=== PATIENT | female | born 1985 | race Caucasian/White ===

== ENCOUNTER 2019-12-03 14:26 | Emergency (ER) | payer MEDICARE, OTHER ==
[2019-12-03 14:44] VITALS: TEMP 98
[2019-12-03] MEDS ORDERED: SODIUM CHLORIDE 0.9% 1,000 ML IV STA (15:00)
[2019-12-03] MEDS ORDERED: KETOROLAC 30 MG/ML 1 ML VIAL IVP STA (15:00)
--- NOTE | 2019-12-03 15:03 | ED ---
General Adult HPI - General Chief complaint: Abdominal Pain Stated complaint: Abd pain, sent by Time Seen by Provider: 12/03/19 14:51 Source: family, RN notes reviewed Mode of arrival: ambulatory Limitations: no limitations - History of Present Illness Initial comments: 34-year-old female with a past medical history of cerebral palsy, iron deficiency anemia presents to the emergency room for a chief complaint of abdominal pain. Patient started to have abdominal pain earlier today. States it is generalized in nature. It caregiver reports she took her to the doctor today and they did an x-ray and saw air in her abdomen and did not hear bowel s ounds were concerned for constipation versus blockage. Patient had 2 very large bowel movements yesterday. Patient does not have any nausea vomiting. Patient is eating normally. No fevers.Patient has no other complaints at this time including shortness of breath, chest pain, nausea or vomiting, headache, or visual changes. - Related Data Home Medications Medication Instructions Recorded Confirmed Lutera 1 tab PO DIRECTED 01/30/15 05/19/15 One A Day 1 tab PO DAILY 01/30/15 05/19/15 polyethylene glycoL 3350 [Miralax] 17 gm PO DAILY PRN 01/30/15 05/19/15 tiZANidine [Zanaflex] 2 mg PO HS 01/30/15 05/19/15 Previous Rx's Medication Instructions Recorded Dicyclomine [Bentyl] 20 mg PO TID PRN #14 tablet 12/03/19 Allergies Allergy/AdvReac Type Severity Reaction Status Date / Time cefaclor [From Ceclor] Allergy Unknown Verified 12/03/19 14:43 morphine Allergy Unknown Verified 12/03/19 14:43 Review of Systems ROS Statement: Those systems with pertinent positive or pertinent negative responses have been documented in the HPI. ROS Other: All systems not noted in ROS Statement are negative. Past Medical History Past Medical History: No Reported History Additional Past Medical History / Comment(s): Cerebral palsy,iron deficiency anemia History of Any Multi-Drug Resistant Organisms: None Reported Past Surgical History: Back Surgery, Orthopedic Surgery Past Psychological History: Anxiety Smoking Status: Never smoker Past Alcohol Use History: None Reported Past Drug Use History: None Reported General Exam Limitations: no limitations General appearance: alert, in no apparent distress Head exam: Present: atraumatic, normocephalic, normal inspection Eye exam: Present: normal appearance, PERRL, EOMI. Absent: scleral icterus, conjunctival injection, periorbital swelling ENT exam: Present: normal exam, mucous membranes moist Neck exam: Present: normal inspection, full ROM. Absent: tenderness, meningismus, lymphadenopathy Respiratory exam: Present: normal lung sounds bilaterally. Absent: respiratory distress, wheezes, rales, rhonchi, stridor Cardiovascular Exam: Present: regular rate, normal rhythm, normal heart sounds. Absent: systolic murmur, diastolic murmur, rubs, gallop, clicks GI/Abdominal exam: Present: soft, tenderness (minimal generalized abdominal tenderness), normal bowel sounds (bowel sounds are normal.). Absent: distended, guarding, rebound, rigid Neurological exam: Present: alert Course Vital Signs 12/03/19 12/03/19 14:39 16:41 Temperature 98.0 F Pulse Rate 96 87 Respiratory 18 16 Rate Blood Pressure 116/84 110/89 O2 Sat by Pulse 97 99 Oximetry Medical Decision Making - Medical Decision Making Vitals are stable. Abdomen is soft. No specific tenderness. Bowel sounds are normal. CBC CMP are unremarkable. Urinalysis does show 2+ ketones and patient was given fluids. X-ray KUB was performed that showed a suboptimal study however persistent overall nonspecific bowel gas pattern. Suspected moderate colonic fecal stasis. This was compared to a previous x-ray 2014 where patient then had a CT obtained which showed fecal impaction and constipation. I did perform rectal exam and there is no fecal impaction at this time. Patient likely experiencing bowel spasms and constipation. Patient takes half a cap of MiraLAX daily which will be increased to a full. She will be given Bentyl and Tylenol. She is to follow-up with her doctor in one to 2 days. If patient has any worsening symptoms such as fevers or symptoms are not improving caregiver will return to the emergency room. X-ray in case was reviewed with Dr. Santiago - Lab Data Result diagrams: 12/03/19 14:58 12/03/19 14:58 Lab Results 12/03/19 12/03/19 12/03/19 Range/Units 14:58 14:58 15:10 WBC 6.0 (3.8-10.6) k/uL RBC 4.69 (3.80-5.40) m/uL Hgb 14.4 (11.4-16.0) gm/dL Hct 44.6 (34.0-46.0) % MCV 95.0 (80.0-100.0) fL MCH 30.6 (25.0-35.0) pg MCHC 32.2 (31.0-37.0) g/dL RDW 12.4 (11.5-15.5) % Plt Count 347 (150-450) k/uL Neutrophils % 58 % Lymphocytes % 33 % Monocytes % 6 % Eosinophils % 1 % Basophils % 1 % Neutrophils # 3.5 (1.3-7.7) k/uL Lymphocytes # 1.9 (1.0-4.8) k/uL Monocytes # 0.3 (0-1.0) k/uL Eosinophils # 0.0 (0-0.7) k/uL Basophils # 0.1 (0-0.2) k/uL Sodium 142 (137-145) mmol/L Potassium 4.6 (3.5-5.1) mmol/L Chloride 107 (98-107) mmol/L Carbon Dioxide 22 (22-30) mmol/L Anion Gap 13 mmol/L BUN 12 (7-17) mg/dL Creatinine 0.56 (0.52-1.04) mg/dL Est GFR (CKD-EPI)AfAm >90 (>60 ml/min/1.73 sqM) Est GFR (CKD-EPI)NonAf >90 (>60 ml/min/1.73 sqM) Glucose 84 (74-99) mg/dL Calcium 10.1 (8.4-10.2) mg/dL Total Bilirubin 0.8 (0.2-1.3) mg/dL AST 20 (14-36) U/L ALT 12 (4-34) U/L Alkaline Phosphatase 84 (38-126) U/L Total Protein 8.3 H (6.3-8.2) g/dL Albumin 5.1 H (3.5-5.0) g/dL Amylase 78 (30-110) U/L Lipase 97 (23-300) U/L Urine Color Yellow Urine Appearance Cloudy H (Clear) Urine pH 5.5 (5.0-8.0) Ur Specific [place] 1.022 (1.001-1.035) Urine Protein Negative (Negative) Urine Glucose (UA) Negative (Negative) Urine Ketones 2+ H (Negative) Urine Blood Moderate H (Negative) Urine Nitrite Negative (Negative) Urine Bilirubin Negative (Negative) Urine Urobilinogen <2.0 (<2.0) mg/dL Ur Leukocyte Esterase Trace H (Negative) Urine RBC 2 (0-5) /hpf Urine WBC 8 H (0-5) /hpf Ur Squamous Epith Cells 12 H (0-4) /hpf Urine Bacteria Occasional H (None) /hpf Urine Mucus Few H (None) /hpf Urine HCG, Qual (Not Detectd) 12/03/19 Range/Units 15:10 WBC (3.8-10.6) k/uL RBC (3.80-5.40) m/uL Hgb (11.4-16.0) gm/dL Hct (34.0-46.0) % MCV (80.0-100.0) fL MCH (25.0-35.0) pg MCHC (31.0-37.0) g/dL RDW (11.5-15.5) % Plt Count (150-450) k/uL Neutrophils % % Lymphocytes % % Monocytes % % Eosinophils % % Basophils % % Neutrophils # (1.3-7.7) k/uL Lymphocytes # (1.0-4.8) k/uL Monocytes # (0-1.0) k/uL Eosinophils # (0-0.7) k/uL Basophils # (0-0.2) k/uL Sodium (137-145) mmol/L Potassium (3.5-5.1) mmol/L Chloride (98-107) mmol/L Carbon Dioxide (22-30) mmol/L Anion Gap mmol/L BUN (7-17) mg/dL Creatinine (0.52-1.04) mg/dL Est GFR (CKD-EPI)AfAm (>60 ml/min/1.73 sqM) Est GFR (CKD-EPI)NonAf (>60 ml/min/1.73 sqM) Glucose (74-99) mg/dL Calcium (8.4-10.2) mg/dL Total Bilirubin (0.2-1.3) mg/dL AST (14-36) U/L ALT (4-34) U/L Alkaline Phosphatase (38-126) U/L Total Protein (6.3-8.2) g/dL Albumin (3.5-5.0) g/dL Amylase (30-110) U/L Lipase (23-300) U/L Urine Color Urine Appearance (Clear) Urine pH (5.0-8.0) Ur Specific [place] (1.001-1.035) Urine Protein (Negative) Urine Glucose (UA) (Negative) Urine Ketones (Negative) Urine Blood (Negative) Urine Nitrite (Negative) Urine Bilirubin (Negative) Urine Urobilinogen (<2.0) mg/dL Ur Leukocyte Esterase (Negative) Urine RBC (0-5) /hpf Urine WBC (0-5) /hpf Ur Squamous Epith Cells (0-4) /hpf Urine Bacteria (None) /hpf Urine Mucus (None) /hpf Urine HCG, Qual Not Detected (Not Detectd) Disposition Clinical Impression: Constipation, Abdominal pain Disposition: HOME SELF-CARE Condition: Good Instructions (If sedation given, give patient instructions): Constipation (ED), Abdominal Pain (ED) Additional Instructions: please push plenty of fluids. Give Tylenol every 4-6 hours for pain. Give Bentyl as needed for pain. Try a full Of MiraLAX daily. Follow-up with your doctor. Return here to the emergency room if patient has any worsening symptoms such as fevers or symptoms are not improving. Prescriptions: Dicyclomine [Bentyl] 20 mg PO TID PRN #14 tablet PRN Reason: abdominal pain Is patient prescribed a controlled substance at d/c from ED?: No Referrals: Marques Talavera MD [Primary Care Provider] - 1-2 days Time of Disposition: 16:41
[2019-12-03 15:18] LABS: Basophils # (A) 0.1 k/uL (0-0.2); Basophils % (A) 1 %; Eosinophils % (A) 1 %; HCT 44.6 % (34.0-46.0); HGB 14.4 gm/dL (11.4-16.0); Lymphocytes # (A) 1.9 k/uL (1.0-4.8); Lymphocytes % (A) 33 %; MCH 30.6 pg (25.0-35.0); MCHC 32.2 g/dL (31.0-37.0); Mean Platelet Volume 7.2; Monocytes # (A) 0.3 k/uL (0-1.0); Monocytes % (A) 6 %; Neutrophils # (A) 3.5 k/uL (1.3-7.7); Neutrophils % (A) 58 %; Platelet Count 347 k/uL (150-450); RBC 4.69 m/uL (3.80-5.40); RDW 12.4 % (11.5-15.5)
[2019-12-03 15:31] LABS: ALT 12 U/L (4-34); AST 20 U/L (14-36); African American GFR (CKD) >90 (>60 ml/min/1.73 sqM); Albumin 5.1 g/dL (3.5-5.0); Alkaline Phosphatase 84 U/L (38-126); Amylase 78 U/L (30-110); Anion Gap 13 mmol/L; Blood Urea Nitrogen 12 mg/dL (7-17); Calcium 10.1 mg/dL (8.4-10.2); Carbon Dioxide 22 mmol/L (22-30); Chloride 107 mmol/L (98-107); Glucose 84 mg/dL (74-99); Non-African American GFR(CKD) >90 (>60 ml/min/1.73 sqM); Potassium 4.6 mmol/L (3.5-5.1); Sodium 142 mmol/L (137-145); Total Bilirubin 0.8 mg/dL (0.2-1.3); Total Protein 8.3 g/dL (6.3-8.2)
[2019-12-03 15:32] LABS: Appearance,Urine Cloudy (Clear); Bacteria,Urine Occasional /hpf; Bilirubin,Urine Negative (Negative); Blood,Urine Moderate (Negative); Color,Urine Yellow; Glucose,Urine (UA) Negative (Negative); Ketones,Urine 2+ (Negative); Leukocyte Esterase,Urine Trace (Negative); Mucus,Urine Few /hpf; Nitrite,Urine Negative (Negative); PH, Urine 5.5 (5.0-8.0); Protein,Urine Negative (Negative); RBC,Urine 2 /hpf (0-5); Specific Gravity,Urine 1.022 (1.001-1.035); Squamous Epithelial Cell,Urine 12 /hpf (0-4); Urobilinogen,Urine <2.0 mg/dL (<2.0); WBC,Urine 8 /hpf (0-5)
--- NOTE | 2019-12-03 16:01 | XR ---
EXAMINATION TYPE: XR KUB DATE OF EXAM: 12/03/2019 3:56 PM CLINICAL HISTORY: Abdominal pain for 2 days. TECHNIQUE: Two supine KUB images of the abdomen are obtained. COMPARISON: Abdominal x-ray and CT January 30, 2015. FINDINGS: Persistent marked underlying levoconvex rotary scoliosis with long segment Quinteros teresa s urgical correction. This makes evaluation suboptimal. Gas prominent small and large bowel loops throu ghout the abdomen and pelvis. Some prominence of fecal material in the right abdomen and pelvis. [place] Farmer raquel deformity to the pelvis with prior attempted surgery left acetabular level. Stable right hip subl uxation. Lung bases remain clear. IMPRESSION: Suboptimal study, persistent overall nonspecific bowel gas pattern. Persistent suspected moderate colonic fecal stasis.
[2019-12-03 16:42] VITALS: BP 110/89; PULSE 87; RESP 16
== END 2019-12-03 16:51 | disposition home or self-care (01) ==
LOC: EC 14:26
DX: K59.00 Constipation, unspecified (principal); F41.9 Anxiety disorder, unspecified; G80.9 Cerebral palsy, unspecified; Z79.899 Other long term (current) drug therapy; Z88.1 Allergy status to other antibiotic agents; Z88.5 Allergy status to narcotic agent
CPT/HCPCS: 36415; 80053; 82150; 83690; 85025; 81001; 81025; 74018; 99284; 96374; 96361 ×2; J1885

== ENCOUNTER 2019-12-05 18:51 | Emergency (ER) | payer MEDICARE, OTHER ==
[2019-12-05] MEDS ORDERED: SODIUM CHLORIDE 0.9% 1,000 ML IV STA (18:54)
[2019-12-05] MEDS ORDERED: KETOROLAC 30 MG/ML 1 ML VIAL IVP STA (18:54)
[2019-12-05] MEDS ORDERED: DICYCLOMINE 10 MG/ML 2 ML AMP IM STA (18:54)
[2019-12-05] MEDS ORDERED: PANTOPRAZOLE 40 MG/10 ML VIAL IVP STA (18:55)
[2019-12-05] MEDS ORDERED: ONDANSETRON 4 MG/2 ML VIAL IVP STA (18:55)
--- NOTE | 2019-12-05 19:05 | ED ---
Nausea/Vomiting/Diarrhea HPI - General Stated complaint: Vomiting Time Seen by Provider: 12/05/19 18:54 Source: RN notes reviewed, old records reviewed - History of Present Illness Initial comments: This is a 34-year-old female DF for evaluation of nausea vomiting persistent nausea vomiting patient symptoms similar symptoms throughout the day today. Patient has prior evaluations lately with no acute cause found. Persistent n ausea vomiting currently with no abdominal pain no fevers. No sick contacts no travel history no family members with similar complaint MD complaint: nausea, vomiting, abdominal pain -: days(s) Description of Vomiting: food contents Associated Abdominal Pain: Yes Radiation: none Severity: moderate Severity scale (1-10): 4 Quality: cramping Consistency: constant Improves with: none Worsens with: none Associated Symptoms: loss of appetite, nausea/vomiting - Related Data Home Medications Medication Instructions Recorded Confirmed polyethylene glycoL 3350 [Miralax] 17 gm PO DAILY PRN 01/30/15 12/03/19 Baclofen [Lioresal] 10 mg PO BID 12/03/19 12/03/19 Calcium (Unknown Strength) 1 tab PO DAILY 12/03/19 12/03/19 L.acidoph,Paracasei, B.lactis 1 tab PO DAILY 12/03/19 12/03/19 [Probiotic] Multivitamins, Thera [Multivitamin 1 tab PO DAILY 12/03/19 12/03/19 (formulary)] Previous Rx's Medication Instructions Recorded Dicyclomine [Bentyl] 20 mg PO TID PRN #14 tablet 12/03/19 Allergies Allergy/AdvReac Type Severity Reaction Status Date / Time cefaclor [From Ceclor] Allergy Unknown Verified 12/03/19 14:43 morphine Allergy Unknown Verified 12/03/19 14:43 Review of Systems ROS Statement: Those systems with pertinent positive or pertinent negative responses have been documented in the HPI. ROS Other: All systems not noted in ROS Statement are negative. Past Medical History Past Medical History: No Reported History Additional Past Medical History / Comment(s): Cerebral palsy,iron deficiency anemia History of Any Multi-Drug Resistant Organisms: None Reported Past Surgical History: Back Surgery, Orthopedic Surgery Past Psychological History: Anxiety Smoking Status: Never smoker Past Alcohol Use History: None Reported Past Drug Use History: None Reported General Exam General appearance: alert, in no apparent distress Head exam: Present: atraumatic, normocephalic, normal inspection Eye exam: Present: normal appearance, PERRL, EOMI. Absent: scleral icterus, conjunctival injection, periorbital swelling ENT exam: Present: normal exam, mucous membranes moist Neck exam: Present: normal inspection. Absent: tenderness, meningismus, lymphad enopathy Respiratory exam: Present: normal lung sounds bilaterally. Absent: respiratory distress, wheezes, rales, rhonchi, stridor Cardiovascular Exam: Present: regular rate, normal rhythm, normal heart sounds. Absent: systolic murmur, diastolic murmur, rubs, gallop, clicks GI/Abdominal exam: Present: soft, normal bowel sounds. Absent: distended, tenderness, guarding, rebound, rigid Extremities exam: Present: normal inspection, full ROM, normal capillary refill. Absent: tenderness, pedal edema, joint swelling, calf tenderness Back exam: Present: normal inspection Neurological exam: Present: alert, oriented X3, CN II-XII intact Psychiatric exam: Present: normal affect, normal mood Skin exam: Present: warm, dry, intact, normal color. Absent: rash Course Vital Signs 12/05/19 12/05/19 12/05/19 19:01 20:05 20:31 Temperature 97.8 F 97.5 F L 97.9 F Pulse Rate 85 77 72 Respiratory 17 18 17 Rate Blood Pressure 113/76 117/85 111/68 O2 Sat by Pulse 96 95 96 Oximetry - Reevaluation(s) Reevaluation #1: Medical record is reviewed Symptoms are significantly improving, resolved Spoke with patient regarding symptoms and findings, questions answered Patient feels good for discharge home Medical Decision Making - Medical Decision Making 34 female Verenice with persistent nausea vomiting symptoms are resolved here in the ER studies are negative patient can be discharged home - Lab Data Result diagrams: 12/05/19 19:37 12/05/19 19:37 Lab Results 12/05/19 12/05/19 12/05/19 Range/Units 19:37 19:37 19:37 WBC 8.0 (3.8-10.6) k/uL RBC 4.45 (3.80-5.40) m/uL Hgb 13.7 (11.4-16.0) gm/dL Hct 41.8 (34.0-46.0) % MCV 94.1 (80.0-100.0) fL MCH 30.7 (25.0-35.0) pg MCHC 32.6 (31.0-37.0) g/dL RDW 12.3 (11.5-15.5) % Plt Count 334 (150-450) k/uL Neutrophils % 78 % Lymphocytes % 15 % Monocytes % 5 % Eosinophils % 1 % Basophils % 0 % Neutrophils # 6.2 (1.3-7.7) k/uL Lymphocytes # 1.2 (1.0-4.8) k/uL Monocytes # 0.4 (0-1.0) k/uL Eosinophils # 0.1 (0-0.7) k/uL Basophils # 0.0 (0-0.2) k/uL Sodium 139 (137-145) mmol/L Potassium 4.5 (3.5-5.1) mmol/L Chloride 107 (98-107) mmol/L Carbon Dioxide 22 (22-30) mmol/L Anion Gap 10 mmol/L BUN 9 (7-17) mg/dL Creatinine 0.45 L (0.52-1.04) mg/dL Est GFR (CKD-EPI)AfAm >90 (>60 ml/min/1.73 sqM) Est GFR (CKD-EPI)NonAf >90 (>60 ml/min/1.73 sqM) Glucose 98 (74-99) mg/dL Plasma Lactic Acid Jin 1.5 (0.7-2.0) mmol/L Calcium 9.8 (8.4-10.2) mg/dL Total Bilirubin 0.7 (0.2-1.3) mg/dL AST 26 (14-36) U/L ALT 12 (4-34) U/L Alkaline Phosphatase 73 (38-126) U/L Total Protein 7.4 (6.3-8.2) g/dL Albumin 4.6 (3.5-5.0) g/dL Amylase 79 (30-110) U/L Lipase 57 (23-300) U/L - Radiology Data Radiology results: report reviewed (CT pelvis negative for acute disease), image reviewed Disposition Clinical Impression: Nausea & vomiting Disposition: HOME SELF-CARE Condition: Good Instructions (If sedation given, give patient instructions): Acute Nausea and Vomiting (ED) Is patient prescribed a controlled substance at d/c from ED?: No Referrals: Sadaf,Marques, MD [Primary Care Provider] - 1-2 days
[2019-12-05 19:41] LABS: Basophils % (A) 0 %; Eosinophils # (A) 0.1 k/uL (0-0.7); Eosinophils % (A) 1 %; HCT 41.8 % (34.0-46.0); HGB 13.7 gm/dL (11.4-16.0); Lymphocytes # (A) 1.2 k/uL (1.0-4.8); Lymphocytes % (A) 15 %; MCH 30.7 pg (25.0-35.0); MCHC 32.6 g/dL (31.0-37.0); MCV 94.1 fL (80.0-100.0); Mean Platelet Volume 7.3; Monocytes # (A) 0.4 k/uL (0-1.0); Monocytes % (A) 5 %; Neutrophils # (A) 6.2 k/uL (1.3-7.7); Neutrophils % (A) 78 %; Platelet Count 334 k/uL (150-450); RBC 4.45 m/uL (3.80-5.40); RDW 12.3 % (11.5-15.5)
[2019-12-05] MEDS ORDERED: SENNOSIDES-DOCUSATE SODIUM 1 EACH TAB PO STA (19:48)
[2019-12-05 19:55] LABS: ALT 12 U/L (4-34); AST 26 U/L (14-36); African American GFR (CKD) >90 (>60 ml/min/1.73 sqM); Albumin 4.6 g/dL (3.5-5.0); Alkaline Phosphatase 73 U/L (38-126); Amylase 79 U/L (30-110); Anion Gap 10 mmol/L; Blood Urea Nitrogen 9 mg/dL (7-17); Calcium 9.8 mg/dL (8.4-10.2); Carbon Dioxide 22 mmol/L (22-30); Chloride 107 mmol/L (98-107); Glucose 98 mg/dL (74-99); Non-African American GFR(CKD) >90 (>60 ml/min/1.73 sqM); Potassium 4.5 mmol/L (3.5-5.1); Sodium 139 mmol/L (137-145); Total Bilirubin 0.7 mg/dL (0.2-1.3); Total Protein 7.4 g/dL (6.3-8.2)
--- NOTE | 2019-12-05 20:00 | CT ---
EXAMINATION TYPE: CT abdomen pelvis w con DATE OF EXAM: 12/05/2019 COMPARISON: 01/30/2015 HISTORY: vomiting CT DLP: 614.7 mGycm Automated exposure control for dose reduction was used. CONTRAST: Performed with IV Contrast, patient injected with 100 mL of Isovue 300. Images were obtained from the diaphragm to the floor the pelvis with IV contrast. FINDINGS: There are posterior spinal rods stabilizing scoliotic deformity of the thoracic and lumbar spine. The lung bases are clear of consolidation. There is no pleural effusion. Heart size is normal. There is no pericardial effusion. Liver appears normal. Gallbladder appears normal. Spleen is intact. There is no evidence of pancreati c mass. Stomach is intact. Bladder distends smoothly. Kidneys show satisfactory contrast opacification. There is no hydronephros is. Ureters are not dilated. There is moderate thoracolumbar levoscoliotic deformity. Uterus is antev erted. There is no evidence of a pelvic mass. There is mild lateral subluxation of the right femoral head. There is no evidence of pneumoperitoneum. There is retained gas and fecal material in the rectosigmoi d colon. I see no sign of free air. There is no ascites. I see no bony destructive process. IMPRESSION: No sign of acute abdomen and pelvis. There is significant improvement in the constipation compared to old exam.
[2019-12-05] MEDS ORDERED: GLYCERIN ADULT SUPPOSITORY 1 EACH RECTAL STA (20:13)
[2019-12-05] MEDS ORDERED: ONDANSETRON 4 MG ODT STARTER PACK 2 TAB BTL PO STA (20:13)
[2019-12-05 20:32] VITALS: BP 111/68; PULSE 72; RESP 17; TEMP 97.9
== END 2019-12-05 20:57 | disposition home or self-care (01) ==
LOC: EC 18:51
DX: R11.2 Nausea with vomiting, unspecified (principal); Z79.899 Other long term (current) drug therapy; Z88.5 Allergy status to narcotic agent; Z88.1 Allergy status to other antibiotic agents
CPT/HCPCS: 36415; 80053; 82150; 83605; 83690; 85025; 74177; 99285; 96374; 96375 ×2; 96372; 96361; J0500; J2405; J1885; S0119; C9113; Q9967

== ENCOUNTER → 2019-12-31 | Outpatient (CLI) | payer MEDICARE, OTHER ==
[2019-12-31 08:33] LABS: Basophils # (A) 0.1 k/uL (0-0.2); Basophils % (A) 1 %; Eosinophils # (A) 0.1 k/uL (0-0.7); Eosinophils % (A) 1 %; HCT 43.5 % (34.0-46.0); HGB 13.8 gm/dL (11.4-16.0); Lymphocytes # (A) 1.2 k/uL (1.0-4.8); Lymphocytes % (A) 15 %; MCH 30.1 pg (25.0-35.0); MCHC 31.7 g/dL (31.0-37.0); Mean Platelet Volume 7.1; Monocytes # (A) 0.3 k/uL (0-1.0); Monocytes % (A) 4 %; Neutrophils # (A) 6.2 k/uL (1.3-7.7); Neutrophils % (A) 78 %; Platelet Count 344 k/uL (150-450); RBC 4.58 m/uL (3.80-5.40); RDW 12.6 % (11.5-15.5)
[2019-12-31 17:16] LABS: ALT 17 U/L (8-44); AST 19 U/L (13-35); Albumin/Globulin Ratio 1.74 (1.60-3.17); Alkaline Phosphatase 74 U/L (41-126); BUN/Creat Ratio 18.57 Ratio (12.00-20.00); Calcium 9.5 mg/dL (8.7-10.3); Carbon Dioxide 24.3 mmol/L (21.6-31.8); Chloride 108 mmol/L (96-109); Chol/HDL Ratio 3.09; Cholesterol 142 mg/dL (0-200); Globulin 2.7 g/dL (1.6-3.3); Glucose 99 mg/dL (70-110); Sodium 142 mmol/L (135-145); Total Bilirubin 0.3 mg/dL (0.2-1.2); Total Protein 7.4 g/dL (6.2-8.2); Triglycerides <50.0 mg/dL (0.0-149.0)
== END | disposition home or self-care (01) ==
LOC: LABWHC1 07:26
PROVIDERS: ATTEND Family Medicine
DX: Z00.01 Encounter for general adult medical examination with abnormal findings (principal)
CPT/HCPCS: 36415; 80053; 80061; 82306; 85025

== ENCOUNTER 2022-02-13 10:04 | Emergency (ER) | payer MEDICARE, OTHER ==
[2022-02-13 10:48] VITALS: BP 140/95; PULSE 119; RESP 18; TEMP 98.2
[2022-02-13 12:48] LABS: Appearance,Urine Cloudy (Clear); Bacteria,Urine Many /hpf; Bilirubin,Urine Negative (Negative); Blood,Urine Negative (Negative); Color,Urine Yellow; Glucose,Urine (UA) Negative (Negative); Ketones,Urine 2+ (Negative); Leukocyte Esterase,Urine Trace (Negative); Mucus,Urine Occasional /hpf; Nitrite,Urine Positive (Negative); Protein,Urine Trace (Negative); RBC,Urine 11 /hpf (0-5); Specific Gravity,Urine 1.028 (1.001-1.035); Squamous Epithelial Cell,Urine 5 /hpf (0-4); Urobilinogen,Urine <2.0 mg/dL (<2.0); WBC,Urine 2 /hpf (0-5)
--- NOTE | 2022-02-13 12:55 | ED ---
General Adult HPI - General Chief complaint: Psychiatric Symptoms Stated complaint: UTI Time Seen by Provider: 02/13/22 12:35 Source: patient, RN notes reviewed, old records reviewed, Caregiver Mode of arrival: wheelchair Limitations: altered mental status, physical limitation - History of Present Illness Initial comments: This is a 36-year-old female who presents emergency Department with her caregiver. Caregiver does SEEM. CAREGIVER STATES OVER THE LAST 2 WEEKS SHE'S HAD THESE OUTBURSTS WHERE SHE STARTS YELLING AT STAFF AND is saying things that aren't true like she has vomited or that she is a diabetic or that she's moving to [place] and this was occurring much more frequently than her baseline. Staff states this happened in April and they were given Vistaril to give the patient however they have never given it. According to staff there has been No fevers is been no nausea vomiting is been no episodes of difficulty breathing is been no cough the patient doesn't complain of any physical complaints. Patient is eating normally and there is been no problems with coordination and she speaks the same way she always is broken. - Related Data Home Medications Medication Instructions Recorded Confirmed polyethylene glycoL 3350 [Miralax] 17 gm PO DAILY PRN 01/30/15 12/03/19 Baclofen [Lioresal] 10 mg PO BID 12/03/19 12/03/19 Calcium (Unknown Strength) 1 tab PO DAILY 12/03/19 12/03/19 L.acidoph,Paracasei, B.lactis 1 tab PO DAILY 12/03/19 12/03/19 [Probiotic] Multivitamins, Thera [Multivitamin 1 tab PO DAILY 12/03/19 12/03/19 (formulary)] Previous Rx's Medication Instructions Recorded Dicyclomine [Bentyl] 20 mg PO TID PRN #14 tablet 12/03/19 Nitrofurantoin Monohyd/M-Cryst 100 mg PO Q12HR #14 cap 02/13/22 [Macrobid] Allergies Allergy/AdvReac Type Severity Reaction Status Date / Time cefaclor [From [facility]] Allergy Unknown Verified 02/13/22 10:42 morphine Allergy Unknown Verified 02/13/22 10:42 Review of Systems ROS Statement: Those systems with pertinent positive or pertinent negative responses have been documented in the HPI. ROS Other: All systems not noted in ROS Statement are negative. Past Medical History Past Medical History: No Reported History Additional Past Medical History / Comment(s): Cerebral palsy,iron deficiency anemia History of Any Multi-Drug Resistant Organisms: None Reported Past Surgical History: Back Surgery, Orthopedic Surgery Additional Past Surgical History / Comment(s): hip surgery Past Psychological History: Anxiety Smoking Status: Never smoker Past Alcohol Use History: None Reported Past Drug Use History: None Reported General Exam - General Exam Comments Initial Comments: GENERAL: Patient is well-developed and well-nourished. Patient is nontoxic and well- hydrated and is in no acute distress. ENT: Neck is soft and supple. No significant lymphadenopathy is noted. Oropharynx is clear. Moist mucous membranes. Neck has full range of motion without eliciting any pain. There is no thyroid enlargement and no masses were felt. EYES: The sclera were anicteric and conjunctiva were pink and moist. Extraocular movements were intact and pupils were equal round and reactive to light. Eyelids were unremarkable. PULMONARY: Unlabored respirations. Good breath sounds bilaterally. No audible rales rhonchi or wheezing was noted. CARDIOVASCULAR: There is a regular rate and rhythm without any murmurs gallops or rubs. ABDOMEN: Soft and nontender with normal bowel sounds. SKIN: Skin is clear with no lesions or rashes and otherwise unremarkable. NEUROLOGIC: Patient is alert and oriented at her baseline. Cranial nerves II through XII are grossly intact. MUSCULOSKELETAL: Patient moves her extremities according to the caregiver at what is considered her baseline. LYMPHATICS: No significant lymphadenopathy is noted PSYCHIATRIC: According to the caregiver currently the patient is acting at her baseline and she does this a lot when she goes and sees a physician she doesn't have any outbursts. Limitations: altered mental status, physical limitation Course Vital Signs 02/13/22 10:42 Temperature 98.2 F Pulse Rate 119 H Respiratory 18 Rate Blood Pressure 140/95 O2 Sat by Pulse 98 Oximetry Medical Decision Making - Medical Decision Making Urine came back showed many bacteria and positive nitrates but no significant amount of white cells however I will treat this - Lab Data Result diagrams: 02/13/22 13:16 02/13/22 13:16 Lab Results 02/13/22 02/13/22 02/13/22 Range/Units 12:35 13:16 13:16 WBC 5.5 (3.8-10.6) k/uL RBC 4.77 (3.80-5.40) m/uL Hgb 15.3 (11.4-16.0) gm/dL Hct 45.2 (34.0-46.0) % MCV 94.8 (80.0-100.0) fL MCH 32.0 (25.0-35.0) pg MCHC 33.7 (31.0-37.0) g/dL RDW 12.2 (11.5-15.5) % Plt Count 347 (150-450) k/uL MPV 7.6 Neutrophils % 62 % Lymphocytes % 30 % Monocytes % 5 % Eosinophils % 1 % Basophils % 0 % Neutrophils # 3.4 (1.3-7.7) k/uL Lymphocytes # 1.6 (1.0-4.8) k/uL Monocytes # 0.3 (0-1.0) k/uL Eosinophils # 0.1 (0-0.7) k/uL Basophils # 0.0 (0-0.2) k/uL Sodium 142 (137-145) mmol/L Potassium 4.1 (3.5-5.1) mmol/L Chloride 106 (98-107) mmol/L Carbon Dioxide 23 (22-30) mmol/L Anion Gap 13 mmol/L BUN 8 (7-17) mg/dL Creatinine 0.51 L (0.52-1.04) mg/dL Est GFR (CKD-EPI)AfAm >90 (>60 ml/min/1.73 sqM) Est GFR (CKD-EPI)NonAf >90 (>60 ml/min/1.73 sqM) Glucose 113 H (74-99) mg/dL Calcium 10.0 (8.4-10.2) mg/dL Magnesium 2.1 (1.6-2.3) mg/dL Total Bilirubin 0.5 (0.2-1.3) mg/dL AST 21 (14-36) U/L ALT 17 (4-34) U/L Alkaline Phosphatase 71 (38-126) U/L Total Protein 7.8 (6.3-8.2) g/dL Albumin 5.0 (3.5-5.0) g/dL Urine Color Yellow Urine Appearance Cloudy H (Clear) Urine pH 6.0 (5.0-8.0) Ur Specific [place] 1.028 (1.001-1.035) Urine Protein Trace H (Negative) Urine Glucose (UA) Negative (Negative) Urine Ketones 2+ H (Negative) Urine Blood Negative (Negative) Urine Nitrite Positive H (Negative) Urine Bilirubin Negative (Negative) Urine Urobilinogen <2.0 (<2.0) mg/dL Ur Leukocyte Esterase Trace H (Negative) Urine RBC 11 H (0-5) /hpf Urine WBC 2 (0-5) /hpf Ur Squamous Epith Cells 5 H (0-4) /hpf Urine Bacteria Many H (None) /hpf Urine Mucus Occasional H (None) /hpf Disposition Clinical Impression: Behavioral change, Urinary tract infection Disposition: HOME SELF-CARE Condition: Good Prescriptions: Nitrofurantoin Monohyd/M-Cryst [Macrobid] 100 mg PO Q12HR #14 cap Is patient prescribed a controlled substance at d/c from ED?: No Referrals: Marques Talavera MD [Primary Care Provider] - 1-2 days Time of Disposition: 13:59
[2022-02-13 13:21] LABS: Basophils % (A) 0 %; Eosinophils # (A) 0.1 k/uL (0-0.7); Eosinophils % (A) 1 %; HCT 45.2 % (34.0-46.0); HGB 15.3 gm/dL (11.4-16.0); Lymphocytes # (A) 1.6 k/uL (1.0-4.8); Lymphocytes % (A) 30 %; MCHC 33.7 g/dL (31.0-37.0); MCV 94.8 fL (80.0-100.0); Mean Platelet Volume 7.6; Monocytes # (A) 0.3 k/uL (0-1.0); Monocytes % (A) 5 %; Neutrophils # (A) 3.4 k/uL (1.3-7.7); Neutrophils % (A) 62 %; Platelet Count 347 k/uL (150-450); RBC 4.77 m/uL (3.80-5.40); RDW 12.2 % (11.5-15.5); WBC 5.5 k/uL (3.8-10.6)
[2022-02-13 13:33] LABS: ALT 17 U/L (4-34); AST 21 U/L (14-36); African American GFR (CKD) >90 (>60 ml/min/1.73 sqM); Alkaline Phosphatase 71 U/L (38-126); Anion Gap 13 mmol/L; Blood Urea Nitrogen 8 mg/dL (7-17); Carbon Dioxide 23 mmol/L (22-30); Chloride 106 mmol/L (98-107); Glucose 113 mg/dL (74-99); Magnesium 2.1 mg/dL (1.6-2.3); Non-African American GFR(CKD) >90 (>60 ml/min/1.73 sqM); Potassium 4.1 mmol/L (3.5-5.1); Sodium 142 mmol/L (137-145); Total Bilirubin 0.5 mg/dL (0.2-1.3); Total Protein 7.8 g/dL (6.3-8.2)
== END 2022-02-13 14:12 | disposition home or self-care (01) ==
LOC: EC 10:04
DX: R46.89 Other symptoms and signs involving appearance and behavior (principal); N39.0 Urinary tract infection, site not specified; Z88.1 Allergy status to other antibiotic agents; Z88.8 Allergy status to other drugs, medicaments and biological substances; Z79.899 Other long term (current) drug therapy
CPT/HCPCS: 36415; 80053; 81001; 83735; 85025; 99284

== ENCOUNTER 2023-08-26 17:24 | Emergency (ER) | payer MEDICARE, OTHER ==
[2023-08-26 18:01] VITALS: TEMP 99.3
--- NOTE | 2023-08-26 18:20 | ED ---
Abdominal Pain HPI - General Chief Complaint: Abdominal Pain Stated Complaint: Irregular bowel, vomitting Time Seen by Provider: 08/26/23 18:19 Source: patient, family, RN notes reviewed Mode of arrival: wheelchair Limitations: no limitations - History of Present Illness Initial Comments: 37-year-old female accompanied by guardian presenting to the ER with chief complaint of constipation. Parent reports patient has not had a solid bowel movement in the past 5 to 6 days. She states she has been passing very small amount of hard stool. Today she also had an episode of vomiting and started complaining of generalized abdominal pain. Appetite has been normal. No fevers or chills. Guardian reports patient takes lactulose twice daily and Dulcolax suppository daily as this is a chronic issue. Guardian reports patient has no sensation of her rectum and is unable to aid with bowel movements. Normal urination. No other complaints. - Related Data Home Medications Medication Instructions Recorded Confirmed polyethylene glycoL 3350 [Miralax] 17 gm PO DAILY PRN 01/30/15 12/03/19 Baclofen [Lioresal] 10 mg PO BID 12/03/19 12/03/19 Calcium (Unknown Strength) 1 tab PO DAILY 12/03/19 12/03/19 L.acidoph,Paracasei, B.lactis 1 tab PO DAILY 12/03/19 12/03/19 [Probiotic] Multivitamins, Thera [Multivitamin 1 tab PO DAILY 12/03/19 12/03/19 (formulary)] Previous Rx's Medication Instructions Recorded Dicyclomine [Bentyl] 20 mg PO TID PRN #14 tablet 12/03/19 Nitrofurantoin Monohyd/M-Cryst 100 mg PO Q12HR #14 cap 02/13/22 [Macrobid] Allergies Allergy/AdvReac Type Severity Reaction Status Date / Time cefaclor [From [facility]] Allergy Unknown Verified 08/26/23 17:53 morphine Allergy Unknown Verified 08/26/23 17:53 Review of Systems ROS Statement: Those systems with pertinent positive or pertinent negative responses have been documented in the HPI. ROS Other: All systems not noted in ROS Statement are negative. Past Medical History Past Medical History: No Reported History Additional Past Medical History / Comment(s): Cerebral palsy,iron deficiency anemia History of Any Multi-Drug Resistant Organisms: None Reported Past Surgical History: Back Surgery, Orthopedic Surgery Additional Past Surgical History / Comment(s): hip surgery Past Psychological History: Anxiety Smoking Status: Never smoker Past Alcohol Use History: None Reported Past Drug Use History: None Reported General Exam Limitations: physical limitation (wheelchair) Head exam: Present: atraumatic, normocephalic, normal inspection Eye exam: Present: normal appearance, PERRL, EOMI. Absent: scleral icterus, conjunctival injection, periorbital swelling Respiratory exam: Present: normal lung sounds bilaterally. Absent: respiratory distress, wheezes, rales, rhonchi, stridor Cardiovascular Exam: Present: regular rate, normal rhythm, normal heart sounds. Absent: systolic murmur, diastolic murmur, rubs, gallop, clicks GI/Abdominal exam: Present: soft, normal bowel sounds. Absent: distended, tenderness, guarding, rebound, rigid Skin exam: Present: warm, dry, intact, normal color. Absent: rash Course Vital Signs 08/26/23 08/26/23 17:49 21:30 Temperature 99.3 F Pulse Rate 136 H 127 H Respiratory 20 18 Rate Blood Pressure 154/96 139/92 O2 Sat by Pulse 96 94 L Oximetry Procedures - Rectal Disimpaction Consent Obtained: verbal consent Indication: fecal impaction Procedural Sedation: No Sedation/Analgesia: none Technique: manual disimpaction with gloved finger Result: significant stool output Complications: none Patient Tolerated Procedure: well, no complications Medical Decision Making - Medical Decision Making Was pt. sent in by a medical professional or institution (SULTANA Wagner, [employer], urgent care, hospital, or care home...) When possible be specific @ -No Did you speak to anyone other than the patient for history (EMS, parent, family, police, friend...)? What history was obtained from this source @ -Caregiver, at bedside, proving HPI and past medical history in its entirety. Did you review nursing and triage notes (agree or disagree)? Why? @ -I reviewed and agree with nursing and triage notes Were old charts reviewed (outside hosp., previous admission, EMS record, old EKG, old radiological studies, urgent care reports/EKG's, care home records)? Report findings @ -No old charts were reviewed Differential Diagnosis (chest pain, altered mental status, abdominal pain women, abdominal pain men, vaginal bleeding, weakness, fever, dyspnea, syncope, headache, dizziness, GI bleed, back pain, seizure, CVA, palpatations, mental health, musculoskeletal)? @ -Differential Abdominal Pain Women:Appendicitis, Cholecystitis, diverticulosis, ischemic bowel, pancreatitis, hepatitis, UTI, gastroenteritis, AAA, incarcerated hernia, bowel obstruction, constipation, inflammatory bowel, hepatitis, peptic ulcer disease, splenic infarction, perforated viscus, vulvitis, ovarian torsion, PID, kidney stone, placenta abruption, this is not meant to be an all-inclusive list EKG interpreted by me (3pts min.). @ -None X-rays interpreted by me (1pt min.). @ -KUB significant for constipation with large stool burden and large fecaloma in rectum. CT interpreted by me (1pt min.). @ -None done U/S interpreted by me (1pt. min.). @ -None done What testing was considered but not performed or refused? (CT, X-rays, U/S, labs)? Why? @ -None What meds were considered but not given or refused? Why? @ -None Did you discuss the management of the patient with other professionals (professionals i.e. , PA, W[employer]ING [employer]CH[employer]IC, lab, RT, psych nurse, high school social studies tutor, underwriting assistant, teacher, compliance officer, catalytic case operator)? Give summary @ -No Was smoking cessation discussed for >3mins.? @ -No Was critical care preformed (if so, how long)? @ -No Were there social determinants of health that impacted care today? How? (Homelessness, low income, unemployed, alcoholism, drug addiction, transportation, low edu. Level, literacy, decrease access to med. care, residential, rehab)? @ -No Was there de-escalation of care discussed even if they declined (Discuss DNR or withdrawal of care, Hospice)? DNR status @ -No What co-morbidities impacted this encounter? (DM, HTN, Smoking, COPD, CAD, Cancer, CVA, ARF, Chemo, Hep., AIDS, mental health diagnosis, sleep apnea, morbid obesity)? @ -Cerebral palsy Was patient admitted / discharged? Hospital course, mention meds given and route, prescriptions, significant lab abnormalities, going to OR and other pertinent info. @ -Discharge. 37-year-old female presented to the ER with a chief complaint of abdominal pain. History and physical exam completed. Vitals stable. Patient no signs of acute distress and nontoxic-appearing. No focal abdominal tenderness. Normal bowel sounds. KUB significant for constipation with a large fecaloma in the rectum. Manual disimpaction completed. Patient tolerated procedure well. Enema given. Caregiver eager for discharge upon reevaluation. Patient in no signs of acute distress. Strict return parameters discussed. Patient discharged in stable condition with follow-up to PCP. Caregiver verbally expressed understanding and agreement with care plan. Case discussed with ED attending, Dr. Nettles. Undiagnosed new problem with uncertain prognosis? @ -No Drug Therapy requiring intensive monitoring for toxicity (Heparin, Nitro, Insulin, Cardizem)? @ -No Were any procedures done? @ -Yes Diagnosis/symptom? @ -Constipation/fecal impaction Acute, or Chronic, or Acute on Chronic? @ -Acute Uncomplicated (without systemic symptoms) or Complicated (systemic symptoms)? @ -Uncomplicated Side effects of treatment? @ -No Exacerbation, Progression, or Severe Exacerbation? @ -No Poses a threat to life or bodily function? How? (Chest pain, USA, DE, pneumonia, PE, COPD, DKA, ARF, appy, cholecystitis, CVA, Diverticulitis, Homicidal, Suicidal, threat to staff... and all critical care pts) @ -No - Lab Data Lab Results 08/26/23 Range/Units 17:56 Influenza Type A (PCR) Not Detected (Not Detectd) Influenza Type B (PCR) Not Detected (Not Detectd) RSV (PCR) Not Detected (Not Detectd) SARS-CoV-2 (PCR) Not Detected (Not Detectd) - Radiology Data Radiology results: report reviewed, image reviewed Disposition Clinical Impression: Constipation, Fecal impaction in rectum Disposition: HOME SELF-CARE Condition: Stable Instructions (If sedation given, give patient instructions): Constipation (DC) Additional Instructions: Follow-up with PCP. Return to the ER for any new or worsening concerns. Is patient prescribed a controlled substance at d/c from ED?: No Referrals: Marques Talavera MD [Primary Care Provider] - 1-2 days Time of Disposition: 21:24
--- NOTE | 2023-08-26 18:54 | XR ---
EXAMINATION TYPE: XR KUB DATE OF EXAM: 08/26/2023 6:47 PM CLINICAL INDICATION:Female, 37 years old with history of constipation; [facility] COMPARISON: 12/03/2019. TECHNIQUE: One radiographic view of the abdomen was obtained. FINDINGS: There is severe scoliosis with fixation changes. Hardware appears intact. Left pelvis linea r surgical comment noted. Subluxation of the right hip with degeneration changes of the hips. Large s tool burden in the rectum and large bowel with fecaloma measuring up to 11.8 cm. Elevation of the rig ht hemidiaphragm. Gaseous distention of bowel throughout the abdomen predominantly in the right. IMPRESSION: There is constipation with large stool burden throughout the abdomen and large fecaloma in the rectum .
[2023-08-26 22:55] VITALS: BP 139/92; PULSE 127; RESP 18
== END 2023-08-26 21:30 | disposition home or self-care (01) ==
LOC: EC 17:24
DX: K56.41 Fecal impaction (principal); G80.9 Cerebral palsy, unspecified; Z88.5 Allergy status to narcotic agent; Z88.1 Allergy status to other antibiotic agents; Z11.52 Encounter for screening for COVID-19
CPT/HCPCS: 74018; 87636; 99284